=== PATIENT | male | born 1940 | race Two or more races ===

== ENCOUNTER 2018-01-14 15:23 | Emergency (ER) | payer OTHER ==
[~2018-01-14] VITALS: Ht 162.6 cm; Wt 56.7 kg
[2018-01-14] MEDS ORDERED: LIPITOR20 MG (15:45)
[2018-01-14] MEDS ORDERED: METFORMIN HCL500 MG (15:45)
[2018-01-14] MEDS ORDERED: PROSCAR5 MG (15:45)
[2018-01-14] MEDS ORDERED: IRBESARTAN75 MG (15:46)
== END 2018-01-14 19:03 | disposition home or self-care (01) ==
LOC: ER 15:23 → CPU-OBS 15:27 → ER 15:27
DX: I10 Essential (primary) hypertension (principal)